=== PATIENT | male | born 1970 | race Caucasian/White ===

== ENCOUNTER 2016-12-21 15:46 | Emergency (ER) | payer MEDICAID ==
[~2016-12-21] VITALS: Ht 170.2 cm; Wt 73.5 kg
[2016-12-21 16:02] VITALS: BP 126/72
[2016-12-21] MEDS ORDERED: ONDANSETRON ODT 4 MG ONE (16:25)
[2016-12-21] MEDS ORDERED: ONDANSETRON ODT 4 MG PO ONE (16:30)
== END 2016-12-21 17:44 | disposition home or self-care (01) ==
LOC: ED 17:38
DX: S09.90XA Unspecified injury of head, initial encounter (principal); W14.XXXA Fall from tree, initial encounter; Y93.89 Activity, other specified; Y92.89 Other specified places as the place of occurrence of the external cause; Y99.0 Civilian activity done for income or pay
CPT/HCPCS: 70450; 99284; Q0162